=== PATIENT | male | born 1980 | race African-American/Black ===

== ENCOUNTER 2019-11-21 11:25 | Emergency (ER) | payer MEDICAID ==
[~2019-11-21] VITALS: Ht 182.9 cm; Wt 120.0 kg
[2019-11-21 14:20] VITALS: BP 139/65
== END 2019-11-21 14:28 | disposition home or self-care (01) ==
LOC: ER 11:25
DX: M25.462 Effusion, left knee (principal)
CPT/HCPCS: 73562; 99283

== ENCOUNTER 2025-03-14 10:48 | Emergency (ER) | payer MEDICAID ==
[~2025-03-14] VITALS: Ht 182.9 cm; Wt 98.0 kg
[2025-03-14 11:15] VITALS: O2SAT 99
[2025-03-14] MEDS ORDERED: AMLODIPINE 2.5MG TABLET PO ONE (12:00)
[2025-03-14] MEDS: AMLODIPINE 5MG TABLET PO NR (13:09)
[2025-03-14 13:45] VITALS: BP 162/112; PULSE 80; RESP 16; TEMP 37; O2SAT 100
== END 2025-03-14 13:46 | disposition home or self-care (01) ==
LOC: ER 10:48
DX: I10 Essential (primary) hypertension (principal); F43.9 Reaction to severe stress, unspecified; Z79.899 Other long term (current) drug therapy
CPT/HCPCS: 93005; 99283; Z7610